=== PATIENT | male | born 1970 | race Caucasian/White ===

== ENCOUNTER 2017-09-28 13:08 | Emergency (ER) | payer OTHER ==
[~2017-09-28] VITALS: Ht 190.5 cm; Wt 67.1 kg
[2017-09-28] MEDS ORDERED: APIDRA100 UNIT/1 (13:49)
[2017-09-28] MEDS ORDERED: LANTUS SOL100 UNIT/1 (13:49)
== END 2017-09-28 23:36 | disposition home or self-care (01) ==
LOC: ER 13:08
DX: E11.65 Type 2 diabetes mellitus with hyperglycemia (principal)

== ENCOUNTER 2024-05-31 16:43 | Emergency (ER) | payer OTHER ==
[~2024-05-31] VITALS: Ht 190.5 cm; Wt 95.3 kg
[~2024-05-31 16:43] MED LIST: APIDRA100 UNIT/1; LANTUS SOL100 UNIT/1
[2024-05-31 17:24] VITALS: BP 127/83; O2SAT 99
[2024-05-31] MEDS ORDERED: DEXAMETHASONE SODIUM PHOSPHATE 4 MG/ML VIAL IM STA (18:33)
[2024-05-31] MEDS ORDERED: ADVIL PM LIQUI1 EACH PO (21:28)
== END 2024-05-31 23:45 | disposition home or self-care (01) ==
LOC: ER 16:43
DX: S82.842A Displaced bimalleolar fracture of left lower leg, initial encounter for closed fracture (principal); W10.8XXA Fall (on) (from) other stairs and steps, initial encounter; Y93.89 Activity, other specified; Y92.89 Other specified places as the place of occurrence of the external cause; Y99.8 Other external cause status; E11.9 Type 2 diabetes mellitus without complications; Z79.4 Long term (current) use of insulin